=== PATIENT | male | born 1960 | race Caucasian/White ===

== ENCOUNTER 2018-10-18 11:44 | Emergency (ER) | payer OTHER ==
[2018-10-18 12:14] VITALS: BP 133/78; PULSE 87; TEMP 98.8; BMI 34.6
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
--- NOTE | 2018-10-19 16:17 | EKG ---
Test Reason : Blood Pressure : / mmHG Vent. Rate : 080 BPM Atrial Rate : 080 BPM P-R Int : 140 ms QRS Dur : 086 ms QT Int : 388 ms P-R-T Axes : 043 -04 027 degrees QTc Int : 447 ms NORMAL SINUS RHYTHM NORMAL ECG NO PREVIOUS ECGS AVAILABLE Confirmed by MD VALERY, BARON ([id number]) on 10/19/2018 4:17:03 PM Referred By: Confirmed By:BARON RASMUSSEN MD
== END 2018-10-18 13:39 | disposition home or self-care (01) ==
LOC: JER 11:44
DX: Z04.1 Encounter for examination and observation following transport accident (principal); V43.52XA Car driver injured in collision with other type car in traffic accident, initial encounter; Y93.89 Activity, other specified; Y92.410 Unspecified street and highway as the place of occurrence of the external cause; E78.5 Hyperlipidemia, unspecified; E03.9 Hypothyroidism, unspecified; G25.0 Essential tremor; F41.9 Anxiety disorder, unspecified
CPT/HCPCS: 93005; 93010; 99281-25